=== PATIENT | male | born 1985 | race Caucasian/White ===

== ENCOUNTER → 2020-07-14 | Outpatient (CLI) | payer OTHER ==
[~2020-07-14] MED LIST: APRISO0.375 GM PO; CELEXA 20MG20 MG/TAB PO; HCTZ 25MG TAB25 MG PO; ONE-A-DAY ESSE1 EACH PO; PRILOSEC10 MG PO; PRINIVIL20 MG PO
--- NOTE | 2020-07-14 10:21 | NUR ---
The patients exam was put in as Enterograp[employer] on the schedule. The exam was ordered as an MRI abdomen without contrast. I asked Dr. Burciaga which exam should be done. He stated that I should do the MRI abdomen liver protocol per the order.
== END ==
LOC: COL.RAD 08:18
DX: N28.89 Other specified disorders of kidney and ureter (principal); K50.90 Crohn's disease, unspecified, without complications; K52.9 Noninfective gastroenteritis and colitis, unspecified
CPT/HCPCS: A9585

== ENCOUNTER → 2020-07-16 | Outpatient (CLI) | payer OTHER | LOC: COL.RAD 08:42 | DX: K50.90 Crohn's disease, unspecified, without complications (principal); K52.9 Noninfective gastroenteritis and colitis, unspecified; N28.89 Other specified disorders of kidney and ureter ==

== ENCOUNTER 2020-07-23 09:54 | Inpatient (IN) | payer OTHER ==
[~2020-07-23] VITALS: Ht 182.9 cm; Wt 90.4 kg
[2020-08-08] VITALS (12 sets, daily range): BP systolic 114–146; BP diastolic 52–89; PULSE 73–98; TEMP 97.5–98.6
[2020-08-08] MEDS ORDERED: APRISO0.375 GM PO (06:17)
[2020-08-08] MEDS ORDERED: PRINIVIL20 MG PO (06:17)
[2020-08-08] MEDS ORDERED: CELEXA 20MG20 MG/TAB PO (06:18)
[2020-08-08] MEDS ORDERED: PRILOSEC10 MG PO (06:18)
[2020-08-08] MEDS ORDERED: HCTZ 25MG TAB25 MG PO (06:18)
[2020-08-08] MEDS ORDERED: ONE-A-DAY ESSE1 EACH PO (06:18)
--- NOTE | 2020-08-08 06:19 | NUR ---
TO RM 8 AT 0536- CALL LIGHT IN REACH. AT BEDSIDE.
--- NOTE | 2020-08-08 12:00 | NUR ---
Patient doing well post op. Sleepy. Vss on O2. Jonnathan drain to compression. Robotic lap site edges well approximated, open to air. Audible bowels. We discussed Eras protocol. Tylenol per orders. No interest in any clear liquids, drinking water at this time. Gomez to JATIN, red tinged output. Will monitor.
--- NOTE | 2020-08-08 13:00 | NUR ---
Patient reports tylenol not managing pain well. Ultram per Eras protocol. Vss. Patient at bedside.
--- NOTE | 2020-08-08 16:23 | NUR ---
Patient resting in bed. Patient was up and felt nauseated. Zofran per orders. I called update given on patient marginal urine output. Orders obtained. Bolous infusing. also made aware patient was out of bed, he was okay with patient not being completely bedrest post op as a partial nephrectomy. Patient incresing his PO intake. STEPHANIE output 30ml bloody output. Scds on. Will continue to monitor
--- NOTE | 2020-08-08 18:18 | NUR ---
Patient up in room, denies nausea. Tolerating clear liquids. Tylenol per eras, patient wanting to avoid oxycodone. Jonnathan to compression. Urine output increasing. Will monitor.
--- NOTE | 2020-08-08 20:43 | NUR ---
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
--- NOTE | 2020-08-08 22:54 | NUR ---
Awake, alert, oriented x 4, good po intake, daly draining per bag per gravity, STEPHANIE drain intact draining SS, vital signs stable, abdominal lap sites x 5 with glue- RONNELL, updated on plan of care, reviewed pain managment- verbalized understanding.
[2020-08-09 04:01] VITALS: BP 133/54; PULSE 65; TEMP 97.9
[2020-08-09 06:42] LABS: HEMATOCRIT 37.2 % (42.0-52.0); HEMOGLOBIN 12.3 g/dl (13.5-18.0)
[2020-08-09 06:51] LABS: CALCIUM 8.7 mg/dL (8.4-10.2); CREATININE, serum 1.02 (0.66-1.25); POTASSIUM 3.7 mmol/L (3.4-5.0)
[2020-08-09 07:26] VITALS: BP 121/77; PULSE 90; TEMP 97.5
--- NOTE | 2020-08-09 07:30 | NUR ---
Patient awake & alert. Ambulating in the halls gait steady. Tolerated breakfast. denies nausea. Urine output yellow. Jonnathan drain to compression. Lap site edges well approximated. Labs stable. Will montior.
--- NOTE | 2020-08-09 11:08 | NUR ---
rounded. Orders obtained. Jason Ortiz. Patient tolerated well. Instucted on urinal use. Discussed STEPHANIE CR at 1500. Iv to Int. Ordering lunch. emerson thompson.
--- NOTE | 2020-08-09 11:41 | NUR ---
Plan: Return home to [place] with as support. Sheyla Assessment: SW met with patient and in room. Patient reports that he resides on [place] and uses [facility] with medications and the [facility] team 2 Dr. Baker. Patient reports that he does not use DME and is active and independent. Action: Patient reports comp-indep No concerns identified, dcl needs or services. Educations on CC supports. NF.
[2020-08-09 12:02] VITALS: BP 113/60; PULSE 67; TEMP 97.7
--- NOTE | 2020-08-09 14:50 | NUR ---
Patient has been up and ambulating halls independently. Pain remains managed. Tolerating po intake. Voiding without difficulty. Key drain to compression.
[2020-08-09 15:38] VITALS: BP 116/64; PULSE 80; TEMP 98.1
--- NOTE | 2020-08-09 18:28 | NUR ---
Patient tolerated STEPHANIE drain removal. Patient wanting to stay one more night, he is concerned about his pain. Medication per eras. doctor made aware. He has been voiding without troubles. Ambulating halls independently. [facility] [place].
--- NOTE | 2020-08-09 19:48 | NUR ---
Awake, alert, oriented x 4, ambulating in room, denies needs at this time, updated on plan of care, plan on discharging in am, will continue to monitor.
[2020-08-09 20:13] VITALS: BP 136/60; PULSE 80; TEMP 97.6
[2020-08-09 23:53] VITALS: BP 133/68; PULSE 74; TEMP 98.1
[2020-08-10 04:14] VITALS: BP 131/64; PULSE 96; TEMP 98.6
[2020-08-10 07:33] VITALS: BP 126/70; PULSE 89; TEMP 98.3
--- NOTE | 2020-08-10 08:04 | NUR ---
Patient up ambulating halls. Breakfast ordered. Continues to void without troubles. abdomen soft & passing flatus. Plans for discharge home today.
[2020-08-10 11:28] VITALS: BP 126/79; PULSE 91; TEMP 98.4
--- NOTE | 2020-08-10 14:30 | NUR ---
Patient ready for discharge. rounded. Patient at bedside to take patient home. Ultram prior to discharge per request. Patient tolerated lunch. All discharge education given. We reviewed diet, activity, signs & symptoms of infection. Script for [place] & colace sent with patient. We reviewed med list & last dose taken. Patient and his denies questions or concerns. Patient ambulated out with all belongings.
== END 2020-08-10 15:04 | disposition home or self-care (01) | DRG 657 ==
LOC: INPTSU 08-08 05:10 → SURG 08-08 07:30
PROVIDERS: ADMIT Urology
PROC: 8E0W4CZ Robotic Assisted Procedure of Trunk Region, Percutaneous Endoscopic Approach (ICD-10-PCS; 2020-08-08)
PROC: 0TB04ZZ Excision of Right Kidney, Percutaneous Endoscopic Approach (ICD-10-PCS; principal; 2020-08-08 07:30)
DX: C64.1 Malignant neoplasm of right kidney, except renal pelvis (principal); K50.90 Crohn's disease, unspecified, without complications; I10 Essential (primary) hypertension; K76.0 Fatty (change of) liver, not elsewhere classified; E55.9 Vitamin D deficiency, unspecified; K21.9 Gastro-esophageal reflux disease without esophagitis; F41.9 Anxiety disorder, unspecified; F32.9 Major depressive disorder, single episode, unspecified
CPT/HCPCS: A4314; A9284; J0690; J1100; J2250; J2405; J2704; J2795; J3010; J7030; J7120

== ENCOUNTER 2020-10-30 14:00 | Outpatient (RCR) | payer OTHER ==
[2020-09-30 15:44] LABS: HEMOGLOBIN 14.9 g/dl (13.5-18.0); MEAN CELL VOLUME 80 fl (80.0-100.0); MEAN CORPUSCULAR HEMOGLOBIN 27 pg (27.0-31.0); MEAN CORPUSCULAR HGB CONC 34 g/dl (33.0-37.0); PLATELET COUNT 390 K/mm3 (130-400); RED BLOOD COUNT 5.52 M/mm3 (4.20-5.60); REDCELL DISTRIBUTION WIDTH-CV 12.7 % (11.5-14.5)
[2020-09-30 15:57] LABS: ALBUMIN 4.6 gm/dL (3.5-5.0); BILIRUBIN,TOTAL 0.3 mg/dL (0.0-1.0); C-REACTIVE PROTEIN 0.9 mg/dL (0.0-0.9); CALCIUM 9.8 mg/dL (8.4-10.2); CREATININE, serum 0.92 (0.66-1.25); POTASSIUM 3.8 mmol/L (3.4-5.0); TOTAL PROTEIN 8.3 gm/dL (6.4-8.2)
[2020-09-30 16:11] VITALS: BP 113/75; PULSE 82; TEMP 98.3
[2020-09-30 17:16] VITALS: BP 115/69; PULSE 84
[2020-09-30 18:00] VITALS: BP 117/80; PULSE 77
--- NOTE | 2020-09-30 18:15 | NUR ---
Pt has tolerated initial entyvio infusion with no sign of any adverse or allergic reaction. Pt reported a sort of metallic taste in his mouth at onset of infusion but other than than, has been completely asymptomatic. pt has remained pwd with stable vitals. he is amb to exit with brisk gait.
[2020-10-14 15:33] VITALS: BP 123/73; PULSE 73; TEMP 98.4
[2020-10-14 15:56] LABS: HEMATOCRIT 44.5 % (42.0-52.0); HEMOGLOBIN 14.8 g/dl (13.5-18.0); MEAN CELL VOLUME 81 fl (80.0-100.0); MEAN CORPUSCULAR HEMOGLOBIN 27 pg (27.0-31.0); MEAN CORPUSCULAR HGB CONC 33 g/dl (33.0-37.0); MEAN PLATELET VOLUME 10.3 fl (7.4-10.4); PLATELET COUNT 347 K/mm3 (130-400); RED BLOOD COUNT 5.49 M/mm3 (4.20-5.60)
[2020-10-14 15:59] LABS: ALBUMIN 4.5 gm/dL (3.5-5.0); BILIRUBIN,TOTAL 0.2 mg/dL (0.0-1.0); C-REACTIVE PROTEIN 1.1 mg/dL (0.0-0.9); CALCIUM 9.5 mg/dL (8.4-10.2); CREATININE, serum 1.09 (0.66-1.25); POTASSIUM 3.8 mmol/L (3.4-5.0); TOTAL PROTEIN 7.8 gm/dL (6.4-8.2)
[~2020-10-30] VITALS: Ht 182.9 cm; Wt 90.3 kg
[2020-10-30 13:46] LABS: HEMATOCRIT 45.4 % (42.0-52.0); HEMOGLOBIN 15.6 g/dl (13.5-18.0); MEAN CELL VOLUME 80 fl (80.0-100.0); MEAN CORPUSCULAR HEMOGLOBIN 27 pg (27.0-31.0); MEAN CORPUSCULAR HGB CONC 34 g/dl (33.0-37.0); MEAN PLATELET VOLUME 10.2 fl (7.4-10.4); PLATELET COUNT 365 K/mm3 (130-400); RED BLOOD COUNT 5.69 M/mm3 (4.20-5.60); REDCELL DISTRIBUTION WIDTH-CV 13.2 % (11.5-14.5)
[2020-10-30 13:56] LABS: ALBUMIN 4.6 gm/dL (3.5-5.0); BILIRUBIN,TOTAL 0.2 mg/dL (0.0-1.0); C-REACTIVE PROTEIN 1.1 mg/dL (0.0-0.9); CALCIUM 9.4 mg/dL (8.4-10.2); CREATININE, serum 0.96 (0.66-1.25); POTASSIUM 3.7 mmol/L (3.4-5.0); TOTAL PROTEIN 8.2 gm/dL (6.4-8.2)
[2020-10-30 14:30] VITALS: BP 125/73; PULSE 70; TEMP 97.8
[2020-10-30 14:58] VITALS: BP 102/70; PULSE 78
[2020-10-30 15:11] VITALS: BP 102/68; PULSE 76
[2020-10-30 15:21] VITALS: BP 95/64; PULSE 65
[2020-10-30 15:32] VITALS: BP 98/59; PULSE 73
--- NOTE | 2020-10-30 15:40 | NUR ---
INT DC'd with catheter intact. Infusion tolerated without issue. Pt is moving out of state next week and will continue with his infusions in [place].
== END 2020-10-30 16:18 | disposition home or self-care (01) ==
LOC: EUO 14:00
PROVIDERS: Internal Medicine Gastroenterology
DX: K50.10 Crohn's disease of large intestine without complications (principal)
CPT/HCPCS: J3380; J7050